=== PATIENT | female | born 1960 | race Asian ===

== ENCOUNTER 2019-02-08 19:20 | Emergency (ER) | payer BC ==
--- NOTE | 2019-02-08 19:36 | EDM.PDOC ---
ED HPI GENERAL MEDICAL PROBLEM - General Chief Complaint: Respiratory Problem Stated Complaint: [facility] Time Seen by Provider: 02/08/19 19:35 Source of Information: Reports: Patient History Limitations: Reports: No Limitations - History of Present Illness INITIAL COMMENTS - FREE TEXT/NARRATIVE: 58-year-old female of [place] ancestry presents to the ED per [place] [facility]. She has not been feeling well for the last week. She indicates gradually worsening dyspnea with productive cough of green sputum. Associated fever chills and rigors the last 2 days. Some diffuse central and right lower anterior chest pain i.e. pleuritic component with deep breathing and coughing. Decreased appetite although she did eat a little today. Patient suffers from chronic rheumatoid arthritis since age 15. She is no longer able to walk on her own. Patient had sepsis from pneumonia and urinary tract sepsis that destroyed a good deal of her kidney function within the last year. She is thus a hemodialysis patient twice weekly. She has missed dialysis for the last week because she's been to week and/or sick to travel to [place] for dialysis treatments. Denies any diarrhea. She still makes about a cup and a half of urine daily. Onset: Gradual Onset Date: 02/02/19 Duration: Day(s):, Constant, Getting Worse Location: Reports: Chest (Productive cough with some pleuritic right sided chest pains. Associated fever chills and/or rigors the last 2 days.), Generalized Quality: Reports: Other (Right anterior lateral chest.) Severity: Moderate Improves with: Reports: Rest Worsens with: Reports: Other (Worsens with coughing.) Context: Reports: Other (Patient is immunocompromised due to severe rheumatoid arthritis. 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 She has hemodialysis patient. She denies diabetes). Denies: Activity, Exercise, Lifting , Sick Contact, Trauma Associated Symptoms: Reports: Chest Pain, Cough, cough w sputum (Thick green sputum without hemoptysis), Diaphoresis, Fever/Chills, Loss of Appetite, Malaise , Nausea/Vomiting (Intermittent nausea without vomiting), Shortness of Breath, Weakness. Denies: Confusion, Headaches, Rash (Quite marked shortness of breath over the last 3 days), Seizure Treatments HYDROPONICS GROWER: Reports: Other (see below) (None.) Chest Pain Score (Numeric/FACES): 8 - Related Data Allergies Allergy/AdvReac Type Severity Reaction Status Date / Time codeine Allergy Vomiting Verified 02/08/19 19:33 Sulfa (Sulfonamide Allergy Hives Verified 02/08/19 19:33 Antibiotics) IV contrast dye. Allergy Blisters Uncoded 02/08/19 19:33 Home Meds: Home Meds Cyanocobalamin (Vitamin B12) [Vitamin B12] 1 tab PO DAILY 09/08/18 [History] Levothyroxine 125 mcg PO DAILY 09/08/18 [History] Multivitamin W/Iron, Minerals [Flintstones Complete] 1 tab PO DAILY 09/08/18 [ History] Potassium Chloride 2 tab PO DAILY 09/08/18 [History] traMADol [Ultram] 2 tab PO TID PRN 09/08/18 [History] Past Medical History Cardiovascular History: Reports: Other (See Below) Other Cardiovascular History: rheumatoid vasculitis Respiratory History: Reports: Pneumonia, Recurrent (She reports pneumonia at least 3 times in the past.) Genitourinary History: Reports: Dialysis (Dialysis patient twice weekly here in [place].), Other (See Below) (Apparently kidneys were damaged by septic shock and severe pyelonephritis. She spent a month in the hospital in [facility] [place] last year) [employer]ING TE[employer] History: Reports: Other (See Below) Other [employer]ING TECH History: cancer of uterus Musculoskeletal History: Reports: RA (Diagnosed with rheumatoid arthritis at age 15. She has severe deformities of both hands both feet and in knees. She has had no joint replacements. She can no longer walk. Early not on any remittive agents.), Other (See Below) Other Musculoskeletal History: lupus Neurological History: Reports: Other (See Below) Other Neuro History: surgery for fractured neck Oncologic (Cancer) History: Reports: Uterine (She reports total about a bowel hysterectomy in the past due to uterine cancer with retention of her ovaries.) - Past Surgical History Female Surgical History: Reports: Hysterectomy Social & Family History - Caffeine Use Caffeine Use: Reports: None - Living Situation & Occupation Living situation: Reports: Occupation: Disabled ED ROS GENERAL - Review of Systems Review Of Systems: See Below Constitutional: Reports: Fever, Chills, Malaise, Weakness, Fatigue, Decreased Appetite HEENT: Reports: Glasses Respiratory: Reports: Shortness of Breath, Pleuritic Chest Pain (Right anterior lateral lower chest.), Cough, Sputum. Denies: Wheezing, Hemoptysis (Productive green sputum) Cardiovascular: Reports: Blood Pressure Problem, Dyspnea on Exertion ( Chronically but much worse the last week), Lightheadedness. Denies: Claudication (Chronic hypertension), Edema Endocrine: Reports: Fatigue GI/Abdominal: Reports: Constipation (Occasional positive constipation), Nausea. Denies: Diarrhea, Vomiting : Reports: Other (Still makes about A half of urine daily. Prone to urinary tract infection.) Musculoskeletal: Reports: Other (A shunt has multiple joint form and these particularly involving her hands with severe destruction of the MCP joints and ulnar drift of the fingers due to rheumatoid arthritis. His wrists are badly affected. Elbows mildly. Rheumatoid arthritis is affected both knees both ankles and both feet with deformity of the MTP joints as well.) Skin: Reports: Other (She has a area of healed vasculitis left medial lower leg. She states took about a year to get this to heal.) Neurological: Reports: No Symptoms Psychiatric: Reports: No Symptoms Hematologic/Lymphatic: Reports: No Symptoms Immunologic: Reports: No Symptoms ED EXAM, GENERAL - Physical Exam Exam: See Below Exam Limited By: Other (Patient is warm to palpation. Warmer than what temperature suggest 37.1. Sats are 95-96% on room air. Productive sounding cough. Respiratory is 16.) General Appearance: Alert, WD/WN, Mild Distress Eye Exam: Bilateral Eye: Normal Inspection (No scleral icterus.) Ears: Other (Mild erythema of the right tympanic membrane. Left is normal) Throat/Mouth: Other Head: Atraumatic, Normocephalic Neck: Normal Inspection, Supple, Non-Tender, Full Range of Motion. No: Carotid Bruit, Lymphadenopathy (L), Lymphadenopathy (R) Respiratory/Chest: No Respiratory Distress, Decreased Breath Sounds (Decreased air entry to both lower lung deleon worse on the right side as compared to the left.), Rales, Rhonchi (Rhonchi appreciated both lung deleon worse on the right posterior lung than on the left. These clear somewhat with coughing.), Wheezing (Questionable fine crackles both bases worse on the right as compared to the left.), Other (Broviac catheter right upper anterior chest which is being used for dialysis treatment. He has an AV fistula left lower humerus which apparently is not functioning well enough to allow hemodialysis. It still has a palpable thrill.). No: Stridor ( Very occasional expiratory wheeze.), Pleural Rub, Accessory Muscle Use, Retractions, Splinting Cardiovascular: Regular Rate, Rhythm, No Edema, No Gallop, No Murmur, No Rub. No: Normal Peripheral Pulses Peripheral Pulses: 2+: Posterior Tibial (L), Posterior Tibial (R), Dorsalis Pedis (L), Dorsalis Pedis (R) GI/Abdominal: Normal Bowel Sounds, Soft, Non-Tender, No Organomegaly, No Abnormal Bruit, No Mass, Pelvis Stable, Other (Review surgical scar from total abdominal hysterectomy with retention of ovaries due to cancer of the uterus) Extremities: Other (There are deformities of her hands from rheumatoid arthritis destruction of the MCP joints with ulnar drift of the fingers wrists are both involved and near are nearly fused. Elbows are slightly involved. Knees are heavily involved as are her feet and toes or MTP joints.) Neurological: Alert, Oriented, CN II-XII Intact, Normal Cognition Psychiatric: Normal Affect, Normal Mood Skin Exam: Warm, Dry, Intact, Normal Color, No Rash EKG INTERPRETATION EKG Date: 02/08/19 Time: 19:35 Rhythm: NSR Rate (Beats/Min): 95 [place]: Normal P-Wave: Present QRS: Other (Early R-wave transition-consider septal hypertrophy.) ST-T: Normal QT: Prolonged (QTC is mildly prolonged) EKG Interpretation Comments: Borderline ECG Course - Vital Signs Last Recorded V/S: Last Vital Signs Temp 37.1 C 02/08/19 19:28 Pulse 94 02/08/19 19:28 Resp 16 02/08/19 19:28 BP 151/83 H 02/08/19 19:28 Pulse Ox 95 02/08/19 19:28 - Orders/Labs/Meds Orders: Active Orders 24 hr Category Date Time Status EKG Documentation Completion [RC] STAT Care 02/08/19 19:44 Active CULTURE BLOOD [BC] Stat Lab 02/08/19 19:45 Ordered CULTURE BLOOD [BC] Stat Lab 02/08/19 21:35 Received PRO B-TYPE NATRIUR PEPT,BNPPRO [CHEM] Stat Lab 02/08/19 19:45 Ordered SEDIMENTATION RATE AUTO [HEME] Stat Lab 02/08/19 21:35 Received URINALYSIS W/MICROSCOPIC [UA W/MICROSCOPIC] [URIN] Stat Lab 02/08/19 19:45 Ordered Sodium Chloride 0.9% [Normal Saline] 1,000 ml Med 02/08/19 20:00 Active IV ASDIRECTED cefTRIAXone [Rocephin] 2 gm Med 02/08/19 21:45 Active Sodium Chloride 0.9% [Normal Saline] 100 ml IV Q24H Blood Culture x2 Reflex Set [OM.PC] Stat Oth 02/08/19 19:45 Ordered Medication Orders Sodium Chloride (Normal Saline) 1,000 mls @ 50 mls/hr IV ASDIRECTED JEREMIE Last Admin: 02/08/19 20:25 Dose: 50 mls/hr Ceftriaxone Sodium 2 gm/ (Sodium Chloride) 100 mls @ 200 mls/hr IV Q24H JEREMIE Labs: Laboratory Tests 02/08/19 02/08/19 02/08/19 Range/Units 19:44 20:15 20:15 WBC 10.03 (3.98-10.04) K/mm3 RBC 2.92 L (3.98-5.22) M/mm3 Hgb 8.1 L (11.2-15.7) gm/L Hct 26.2 L (34.1-44.9) % MCV 89.7 (79.4-94.8) fl MCH 27.7 (25.6-32.2) pg MCHC 30.9 L (32.2-35.5) g/dl RDW Std Deviation 50.0 H (36.4-46.3) fL Plt Count 351 (182-369) K/mm3 MPV 9.0 L (9.4-12.3) fl Neutrophils % (Manual) 70 H (40-60) % Band Neutrophils % 2 (0-10) % Lymphocytes % (Manual) 19 L (20-40) % Atypical Lymphs % 0 % Monocytes % (Manual) 0 L (2-10) % Eosinophils % (Manual) 7 H (0.7-5.8) % Basophils % (Manual) 0 L (0.1-1.2) Myelocytes % 1 Promyelocytes % 1 Platelet Estimate Adequate Plt Morphology Comment Normal RBC Morph Comment Normal PT 10.7 (9.5-12.1) SECONDS INR 0.98 APTT 22 L (24-31) SECONDS Sodium 138 (136-145) mEq/L Potassium 6.1 H D (3.5-5.1) mEq/L Chloride 103 (98-107) mEq/L Carbon Dioxide 14 L (21-32) mEq/L Anion Gap 27.1 H (5-15) BUN 107 H D (7-18) mg/dL Creatinine 12.2 H (0.55-1.02) mg/dL Est Cr Clr Drug Dosing 4.34 mL/min Estimated GFR (MDRD) 3 (>60) mL/min BUN/Creatinine Ratio 8.8 L (14-18) Glucose 155 H (74-106) mg/dL Lactic Acid (0.4-2.0) mmol/L Calcium 7.1 L D (8.5-10.1) mg/dL Magnesium 2.9 H (1.8-2.4) mg/dl Total Bilirubin 0.3 (0.2-1.0) mg/dL AST 20 (15-37) U/L ALT 12 L (14-59) U/L Alkaline Phosphatase 75 (46-116) U/L Troponin I < 0.017 (0.00-0.056) ng/mL C-Reactive Protein 19.9 H* (<1.0) mg/dL Total Protein 6.6 (6.4-8.2) g/dl Albumin 1.8 L (3.4-5.0) g/dl Globulin 4.8 gm/dL Albumin/Globulin Ratio 0.4 L (1-2) Mycoplasma pneumon IgM Negative (NEGATIVE) 02/08/19 Range/Units 21:35 WBC (3.98-10.04) K/mm3 RBC (3.98-5.22) M/mm3 Hgb (11.2-15.7) gm/L Hct (34.1-44.9) % MCV (79.4-94.8) fl MCH (25.6-32.2) pg MCHC (32.2-35.5) g/dl RDW Std Deviation (36.4-46.3) fL Plt Count (182-369) K/mm3 MPV (9.4-12.3) fl Neutrophils % (Manual) (40-60) % Band Neutrophils % (0-10) % Lymphocytes % (Manual) (20-40) % Atypical Lymphs % % Monocytes % (Manual) (2-10) % Eosinophils % (Manual) (0.7-5.8) % Basophils % (Manual) (0.1-1.2) Myelocytes % Promyelocytes % Platelet Estimate Plt Morphology Comment RBC Morph Comment PT (9.5-12.1) SECONDS INR APTT (24-31) SECONDS Sodium (136-145) mEq/L Potassium (3.5-5.1) mEq/L Chloride (98-107) mEq/L Carbon Dioxide (21-32) mEq/L Anion Gap (5-15) BUN (7-18) mg/dL Creatinine (0.55-1.02) mg/dL Est Cr Clr Drug Dosing mL/min Estimated GFR (MDRD) (>60) mL/min BUN/Creatinine Ratio (14-18) Glucose (74-106) mg/dL Lactic Acid 1.1 (0.4-2.0) mmol/L Calcium (8.5-10.1) mg/dL Magnesium (1.8-2.4) mg/dl Total Bilirubin (0.2-1.0) mg/dL AST (15-37) U/L ALT (14-59) U/L Alkaline Phosphatase (46-116) U/L Troponin I (0.00-0.056) ng/mL C-Reactive Protein (<1.0) mg/dL Total Protein (6.4-8.2) g/dl Albumin (3.4-5.0) g/dl Globulin gm/dL Albumin/Globulin Ratio (1-2) Mycoplasma pneumon IgM (NEGATIVE) Meds: Medications Generic Name Dose Route Start Last Admin Trade Name Freq PRN Reason Stop Dose Admin Sodium Chloride 1,000 mls @ 50 mls/hr 02/08/19 20:00 02/08/19 20:25 Normal Saline IV 50 mls/hr ASDIRECTED JEREMIE Administration Ceftriaxone Sodium 2 gm/ 100 mls @ 200 mls/hr 02/08/19 21:45 Sodium Chloride IV Q24H JEREMIE Discontinued Medications Generic Name Dose Route Start Last Admin Trade Name Freq PRN Reason Stop Dose Admin Acetaminophen 650 mg 02/08/19 19:46 02/08/19 20:02 Tylenol PO 02/08/19 19:47 650 mg NOW ONE Administration Metoclopramide HCl 5 mg 02/08/19 19:46 02/08/19 20:18 Reglan IVPUSH 02/08/19 19:47 5 mg ONETIME ONE Administration Oseltamivir Phosphate 75 mg 02/08/19 21:02 02/08/19 21:25 Tamiflu PO 02/08/19 21:03 75 mg ONETIME ONE Administration - Radiology Interpretation Free Text/Narrative:: 50-year-old female presents to the ED with fever chills riders and not feeling well for the better part of a week. She has a very productive greenish sputum cough. She has had recurrent pneumonia in the past. She is immunocompromised due to having rheumatoid arthritis with previous rheumatoid arthritis induced vasculitis. Is currently not on any remittive therapy. She is a hemodialysis patient due to kidney damage from septic shock and severe pyelonephritis. She is supposed to be on dialysis twice weekly but missed the last week of dialysis due to not feeling well. O2 sats are 95% on room air. He has pleuritic right anterior lateral chest pain. Plan: Tylenol 650 mg by mouth. Septic workup will be carried out. - Re-Assessments/Exams Free Text/Narrative Re-Assessment/Exam: 02/08/19 20;25: Chest x-ray reveals increased density within the right lung base questionably improved from prior exam. Difficult to exclude a persistent nodule or mass versus recurrent pneumonia. Moderate cardiomegaly appreciated with mild diffuse vascular congestion pattern. Land CT of the chest will be done without IV contrast due to her compromised renal function. 02/08/19 21:01 labs are still pending. Influenza screen is positive for the type B virus. Will give first dose of Tamiflu 75 mg by mouth now. 02/08/19 21:13 Part of the labs are back. Total white count is 10.03 with 70% neutrophils and 2% band cells reported. Hemoglobin is low at 8.1 with hematocrit of 26.2. MCV is 89.7. Reticulocyte count is 351,000. PT is 10.7 with an INR of 0.98. PTT is 22. Chemistry is pending. 02/08/19 21:17 CT of the chest has been carried out without IV contrast due to him. Renal function. Rings reveal several mediastinal lymph nodes. Largest lymph node measures 1.5 cm which is slightly prominent in size. Pericardial effusion is seen which appears slightly increased in Hounsfield unit measurements for simple pleural effusion and difficult to exclude exudative pericardial effusion. Loculated areas of pleural fluid and pleural thickening are seen within both lung bases worse on the right side. Right-sided dialysis catheter is present. Minimal atelectasis is noted within both lung bases. Small nodule is noted within the right lung base measuring 6 mm. 02/08/19 21:19 chemistry is back.Chemistry reveals a sodium of 138 with potassium of 6.1. Chloride was 103 with a bicarbonate of 14. Anion gap is 27.1. BUN is 107 with a creatinine of 12.2. Estimated GFR is 3. Glucose is 155. Calcium is 7.1. Magnesium is 2.9. Liver function is normal. Troponin I is less than 0.017. C-reactive protein is pending. Total protein is 6.6 with an albumin fraction very low at 1.8. Mycoplasma pneumonia titer is pending. 02/08/19 21:40 CRP is elevated at 19.9. I will therefore give her 2 g of Rocephin intravenously at this time. I will make arrangements for her to be transferred to [place] as she is going to require bedside dialysis to prevent severe hyperkalemia from developing. She never did provide a urine sample and would not allow catheterization. Echo plasma titer is negative. I've been told that due to problems in the lab BMP, lactic acid will not be available. 02/08/19 22:05: I have spoken to the 1: [facility] in [place] to --control panel operator crude unit hospitalist who is accepted care of this patient. [facility]. She will require bedside dialysis management. CT reports will be sent with the chart and CTs have been sent to [facility] per PACS. Departure - Departure Time of Disposition: 22:25 Disposition: DC/Tfer to Acute Hospital 02 Condition: Serious Clinical Impression: Febrile respiratory illness, Influenza, bronchopneumonia, Hemodialysis patient , Hyperkalemia, diminished renal excretion, Pericardial effusion, Pleural effusion, bilateral, Vasculitis Renal failure Qualifiers: Renal failure chronicity: chronic Chronic kidney disease stage: on chronic dialysis Qualified Code(s): N18.6 - End stage renal disease; Z99.2 - Dependence on renal dialysis Rheumatoid arthritis Qualifiers: Rheumatoid arthritis location: multiple sites Rheumatoid factor presence: with rheumatoid factor Qualified Code(s): M05.79 - Rheumatoid arthritis with rheumatoid factor of multiple sites without organ or systems involvement - Discharge Information *PRESCRIPTION DRUG MONITORING PROGRAM REVIEWED*: No *COPY OF PRESCRIPTION DRUG MONITORING REPORT IN PATIENT [place]: No Referrals: PCP,None [Primary Care Provider] - Forms: ED Department Discharge Additional Instructions: Patient will be transferred to [facility] in [place] due to need for bedside hemodialysis. Patient has an upper respiratory tract infection with reported productive green sputum suggestive of bronchopneumonia. She proved to be influenza type B positive. She has mild hyperkalemia at 6.1. CT reveals bilateral significant pleural effusions particularly on the right side which appears to be chronic. She also has a mild to moderate pericardial effusion. Patient has chronic rheumatoid arthritis and is no longer able to walk. Currently not on any remittive therapy. Therefore she is immunocompromised due to hemodialysis state and rheumatoid arthritis. - My Orders Last 24 Hours: My Active Orders 02/08/19 19:44 EKG Documentation Completion [RC] STAT 02/08/19 19:45 CULTURE BLOOD [BC] Stat PRO B-TYPE NATRIUR PEPT,BNPPRO [CHEM] Stat URINALYSIS W/MICROSCOPIC [UA W/MICROSCOPIC] [URIN] Stat Blood Culture x2 Reflex Set [OM.PC] Stat 02/08/19 20:00 Sodium Chloride 0.9% [Normal Saline] 1,000 ml IV ASDIRECTED 02/08/19 21:35 CULTURE BLOOD [BC] Stat SEDIMENTATION RATE AUTO [HEME] Stat 02/08/19 21:45 cefTRIAXone [Rocephin] 2 gm Sodium Chloride 0.9% [Normal Saline] 100 ml IV Q24H - Assessment/Plan Last 24 Hours: My Active Orders 02/08/19 19:44 EKG Documentation Completion [RC] STAT 02/08/19 19:45 CULTURE BLOOD [BC] Stat PRO B-TYPE NATRIUR PEPT,BNPPRO [CHEM] Stat URINALYSIS W/MICROSCOPIC [UA W/MICROSCOPIC] [URIN] Stat Blood Culture x2 Reflex Set [OM.PC] Stat 02/08/19 20:00 Sodium Chloride 0.9% [Normal Saline] 1,000 ml IV ASDIRECTED 02/08/19 21:35 CULTURE BLOOD [BC] Stat SEDIMENTATION RATE AUTO [HEME] Stat 02/08/19 21:45 cefTRIAXone [Rocephin] 2 gm Sodium Chloride 0.9% [Normal Saline] 100 ml IV Q24H
[2019-02-08] MEDS ORDERED: Acetaminophen 325 MG Tab PO ONE (19:46)
[2019-02-08] MEDS ORDERED: Metoclopramide 10 MG/2 ML SDV IVPUSH ONE (19:46)
[2019-02-08] MEDS ORDERED: Sodium Chloride 0.9% 1,000 ML IV SCH (20:00)
--- NOTE | 2019-02-08 20:06 | CR ---
Chest: Portable view of the chest was obtained. Comparison: Prior chest x-ray of 09/08/18. Heart is enlarged. Right-sided central line is seen. Slight parenchymal density remains within the right lung base. This is seen on prior study and may be slightly decreased in size but CT is recommended to further evaluate. Lungs otherwise are clear. Impression: 1. Increased density within right lung base questionably improved from prior exam. Difficult to exclude a persistent nodule or mass versus recurrent pneumonia. Recommend contrast enhanced chest CT to further evaluate. 2. Cardiomegaly and other incidental findings. Diagnostic code #9
[2019-02-08] MEDS ORDERED: Oseltamivir 75 MG Cap PO ONE (21:02)
--- NOTE | 2019-02-08 21:09 | CT ---
CT chest Technique: Multiple axial sections were obtained from above the lung apices inferiorly through the lung bases. Intravenous contrast not utilized. Comparison: Prior chest x-ray performed earlier on the same day (7:49 PM). Findings: Several mediastinal lymph nodes are seen. Largest lymph node measures 1.5 cm which is slightly prominent in size. Pericardial effusion is seen which appears slightly increased in Hounsfield unit measurements for simple pleural effusion and difficult to exclude exudative pericardial effusion. Loculated areas of pleural fluid and pleural thickening are seen within both lung bases, worse on the right side. Right sided dialysis catheter is seen. Minimal atelectasis noted within both lung bases. Small nodule is noted within the right lung base measuring 6 mm. Lungs otherwise are clear. Bone window settings were reviewed which appear within normal limits for the patient's age. Impression: 1. Pericardial effusion having slight increased Hounsfield unit measurements borderline for simple pericardial effusion or exudative pericardial effusion. 2. Slightly prominent lymph node within the mediastinum which may be reactive. 3. 6 mm nodule within the right lung base. 4. Loculated areas of pleural fluid and pleural thickening within both lung bases, worse on the right side. 5. No acute parenchymal change is appreciated. Note: Recommend follow-up CT study in 3-4 months to confirm stability of above findings. Diagnostic code #9
[2019-02-08] MEDS ORDERED: cefTRIAXone 2 GM in Sodium Chloride 0.9% 100 ML IV SCH (21:45)
[2019-02-08] MEDS ORDERED: HYDROmorphone 1 MG/ML Syringe IVPUSH ONE (22:28)
== END 2019-02-08 22:43 ==
LOC: JD.ED 19:20
DX: J18.0 Bronchopneumonia, unspecified organism (principal); J11.1 Influenza due to unidentified influenza virus with other respiratory manifestations; N18.6 End stage renal disease; E87.5 Hyperkalemia; I31.3 Pericardial effusion (noninflammatory); J90 Pleural effusion, not elsewhere classified; I77.6 Arteritis, unspecified; Z99.2 Dependence on renal dialysis; M05.79 Rheumatoid arthritis with rheumatoid factor of multiple sites without organ or systems involvement; Z88.8 Allergy status to other drugs, medicaments and biological substances; Z88.2 Allergy status to sulfonamides; Z79.899 Other long term (current) drug therapy
CPT/HCPCS: 36415; 71045; 71250; 80053; 83605; 83735; 83880; 84484; 85007; 85027; 85610; 85652; 85730; 86140; 86738; 87040; 87804; 93005; 96361; 96365; 96375; 99285; A9270; J0696; J1170; J2765; J7030; J7040; 93010

== ENCOUNTER 2019-06-03 14:59 | Emergency (ER) | payer BC ==
[2019-06-03] MEDS ORDERED: Sodium Chloride 0.9% 10 ML Syringe FLUSH PRN (16:06)
[2019-06-03] MEDS ORDERED: HYDROmorphone 1 MG/ML Syringe IM ONE ×2 (17:01→18:13)
--- NOTE | 2019-06-03 17:05 | CT ---
Head CT Technique: Multiple axial sections through the brain were obtained. Intravenous contrast was not utilized. Comparison: No prior intracranial imaging. Findings: Sulci over the convexities are mildly prominent which are more prominent within both frontal regions compatible with asymmetric atrophy. No abnormal parenchymal densities are seen. No evidence of intracranial hemorrhage. No midline shift or mass effect is seen. Left temporal fossa arachnoid cyst is noted. Artifact is noted obscuring details within the posterior fossa from hardware within the posterior calvarium extending inferior presumably to the cervical spine. Soft tissue density is noted within the right mastoid sinus. Other visualized sinuses are clear. No acute calvarial abnormality is seen. Impression: 1. Asymmetric atrophy within both frontal regions. 2. Previous surgery with orthopedic hardware causing artifact within the posterior fossa. 3. Soft tissue density within the right mastoid sinus most likely chronic if patient has no symptoms of mastoiditis. 4.. No acute intracranial abnormality is identified. Other findings believed to be incidental as noted above. Diagnostic code #2
[2019-06-03] MEDS ORDERED: Acetaminophen/HYDROcodone 325-5 MG Tab PO ONE (18:55)
--- NOTE | 2019-06-03 19:26 | EDM.PDOC ---
ED HPI GENERAL MEDICAL PROBLEM - General Chief Complaint: Chest Pain Stated Complaint: SENT FROM [facility] HEADACHE SWEATING CONFUSION Time Seen by Provider: 06/03/19 15:52 Source of Information: Reports: Patient, Provider History Limitations: Reports: No Limitations - History of Present Illness INITIAL COMMENTS - FREE TEXT/NARRATIVE: The patient presents from [facility] for a headache and chest pain. She also has was diaphoretic. She denies having a fever or cough. She has no abdominal pain, nausea or vomiting. She does not normally get headaches like this. She has rheumatoid arthritis and she is wheelchair bound now. She does have a sore on her right heal that she does not want me to see. She just got off amoxicillin for that. She has a decub ulcer. Onset: Gradual Duration: Hour(s): Location: Reports: Head, Chest Quality: Reports: Sharp Severity: Moderate Improves with: Reports: None Worsens with: Reports: None Associated Symptoms: Reports: Chest Pain, Fever/Chills, Headaches. Denies: Cough, Loss of Appetite, Nausea/Vomiting, Shortness of Breath Middle Chest Pain Score (Numeric/FACES): 8 - Related Data Allergies Allergy/AdvReac Type Severity Reaction Status Date / Time codeine Allergy Vomiting Verified 06/03/19 15:43 Sulfa (Sulfonamide Allergy Hives Verified 06/03/19 15:43 Antibiotics) IV contrast dye. Allergy Blisters Uncoded 02/08/19 19:33 Home Meds: Home Meds Cyanocobalamin (Vitamin B12) [Vitamin B12] 1 tab PO DAILY 09/08/18 [History] Levothyroxine 125 mcg PO DAILY 09/08/18 [History] Multivitamin W/Iron, Minerals [Flintstones Complete] 1 tab PO DAILY 09/08/18 [ History] Potassium Chloride 2 tab PO DAILY 09/08/18 [History] traMADol [Ultram] 2 tab PO TID PRN 09/08/18 [History] Cephalexin [Keflex] 500 mg PO QID #40 capsule 06/03/19 [Rx] Hydrocodone/Acetaminophen [Hydrocodon-Acetaminophen 5-325] 1 - 2 each PO Q6HR PRN #20 tablet 06/03/19 [Rx] Past Medical History Cardiovascular History: Reports: Other (See Below) Other Cardiovascular History: rheumatoid vasculitis Respiratory History: Reports: Pneumonia, Recurrent Genitourinary History: Reports: Dialysis, Other (See Below) Other Genitourinary History: shunt in left arm 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: Reports: Other (See Below) Other 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: cancer of uterus Musculoskeletal History: Reports: RA, Other (See Below) Other Musculoskeletal History: lupus Neurological History: Reports: Other (See Below) Other Neuro History: surgery for fractured neck Oncologic (Cancer) History: Reports: Uterine - Past Surgical History Female Surgical History: Reports: Hysterectomy Social & Family History - Tobacco Use Smoking Status *Q: Current Status Unknown - Caffeine Use Caffeine Use: Reports: None - Recreational Drug Use Recreational Drug Use: No - Living Situation & Occupation Living situation: Reports: Occupation: Disabled ED ROS GENERAL - Review of Systems Review Of Systems: See Below Constitutional: Reports: Chills. Denies: Fever HEENT: Reports: No Symptoms Respiratory: Reports: No Symptoms Cardiovascular: Reports: Chest Pain Endocrine: Reports: No Symptoms GI/Abdominal: Reports: No Symptoms : Reports: No Symptoms Musculoskeletal: Reports: Other (Ulcer on her right heal) ED EXAM, GENERAL - Physical Exam Exam: See Below Exam Limited By: No Limitations General Appearance: Alert, No Apparent Distress Ears: Normal External Exam Nose: Normal Inspection Head: Atraumatic, Normocephalic Neck: Normal Inspection Respiratory/Chest: No Respiratory Distress, Lungs Clear, Normal Breath Sounds Cardiovascular: Regular Rate, Rhythm, No Edema, No Murmur GI/Abdominal: Soft, Non-Tender, No Organomegaly, No Mass Rectal (Female) Exam: Other (Decub ulcer with some erythema) Extremities: Other (The patient has a sock on both feet and she will not let me see them) Course - Vital Signs Last Recorded V/S: Last Vital Signs Temp 98.4 F 06/03/19 15:41 Pulse 104 H 06/03/19 15:41 Resp 17 06/03/19 15:41 BP 146/76 H 06/03/19 15:41 Pulse Ox 96 06/03/19 15:41 - Orders/Labs/Meds Orders: Active Orders 24 hr Category Date Time Status Cardiac Monitoring [RC] . DIRECTED Care 06/03/19 16:06 Active EKG Documentation Completion [RC] ASDIRECTED Care 06/03/19 15:43 Active Peripheral IV Care [RC] . DIRECTED Care 06/03/19 16:06 Active Chest 1V Frontal [CR] Stat Exams 06/03/19 16:06 Taken Sodium Chloride 0.9% [Saline Flush] Med 06/03/19 16:06 Active 10 ml FLUSH ASDIRECTED PRN Peripheral IV Insertion Adult [OM.PC] Stat Oth 06/03/19 16:06 Ordered EKG 12 Lead [EK] Stat Ther 06/03/19 15:43 Ordered Medication Orders Sodium Chloride (Saline Flush) 10 ml FLUSH ASDIRECTED PRN PRN Reason: Keep Vein Open Labs: Laboratory Tests 06/03/19 06/03/19 Range/Units 16:47 16:47 WBC 15.15 H (3.98-10.04) K/mm3 RBC 3.33 L (3.98-5.22) M/mm3 Hgb 9.1 L (11.2-15.7) gm/L Hct 29.9 L (34.1-44.9) % MCV 89.8 (79.4-94.8) fl MCH 27.3 (25.6-32.2) pg MCHC 30.4 L (32.2-35.5) g/dl RDW Std Deviation 52.8 H (36.4-46.3) fL Plt Count 362 (182-369) K/mm3 MPV 9.0 L (9.4-12.3) fl Neut % (Auto) 76.5 H (34.0-71.1) % Lymph % (Auto) 11.5 L (19.3-51.7) % [place] % (Auto) 5.1 (4.7-12.5) % Eos % (Auto) 6.0 H (0.7-5.8) Baso % (Auto) 0.3 (0.1-1.2) % Neut # (Auto) 11.58 H (1.56-6.13) K/mm3 Lymph # (Auto) 1.74 (1.18-3.74) K/mm3 [place] # (Auto) 0.78 H (0.24-0.36) K/mm3 Eos # (Auto) 0.91 H (0.04-0.36) K/mm3 Baso # (Auto) 0.05 (0.01-0.08) K/mm3 Manual Slide Review Abnormal smear Sodium 141 (136-145) mEq/L Potassium 4.0 D (3.5-5.1) mEq/L Chloride 103 (98-107) mEq/L Carbon Dioxide 27 D (21-32) mEq/L Anion Gap 15.0 (5-15) BUN 25 H D (7-18) mg/dL Creatinine 4.9 H D (0.55-1.02) mg/dL Est Cr Clr Drug Dosing 10.35 mL/min Estimated GFR (MDRD) 9 (>60) mL/min BUN/Creatinine Ratio 5.1 L (14-18) Glucose 112 H (74-106) mg/dL Calcium 8.4 L (8.5-10.1) mg/dL Total Bilirubin 0.3 (0.2-1.0) mg/dL AST 14 L (15-37) U/L ALT 10 L (14-59) U/L Alkaline Phosphatase 90 (46-116) U/L Troponin I 0.024 (0.00-0.056) ng/mL Total Protein 6.7 (6.4-8.2) g/dl Albumin 2.3 L (3.4-5.0) g/dl Globulin 4.4 gm/dL Albumin/Globulin Ratio 0.5 L (1-2) Meds: Medications Generic Name Dose Route Start Last Admin Trade Name Freq PRN Reason Stop Dose Admin Sodium Chloride 10 ml 06/03/19 16:06 Saline Flush FLUSH ASDIRECTED PRN Keep Vein Open Discontinued Medications Generic Name Dose Route Start Last Admin Trade Name Freq PRN Reason Stop Dose Admin Hydrocodone Bitart/Acetaminophen 2 tab 06/03/19 18:55 06/03/19 19:09 [place] 325-5 Mg PO 06/03/19 18:56 2 tab ONETIME ONE Administration Hydromorphone HCl 1 mg 06/03/19 17:01 06/03/19 17:38 Dilaudid IM 06/03/19 17:02 1 mg ONETIME ONE Administration Hydromorphone HCl 1 mg 06/03/19 18:13 06/03/19 18:34 Dilaudid IM 06/03/19 18:14 1 mg ONETIME ONE Administration - Re-Assessments/Exams Free Text/Narrative Re-Assessment/Exam: 06/03/19 19:31 I ordered an IV but my nurse could not get one. I got an EKG that shows a NSR with no acute changes. I ordered a CT of her head and labs. The CT of her head shows asymmetry atrophy within both frontal regions. Previous surger with orthopedic hardware causing artifact within the posterior fossa. Soft tissue density within the right mastoid sinus most likely chronic if patient has no symptoms of mastoiditis. No acute intracranial abnormality is identified. Other findings believed to be incidental. 06/03/19 19:34 Her WBC was elevated at 15.5. Her Hgb was low at 9.1. Her GFR is low at 9. Her glucose is 112. I feel she has a decub infection and right heal. I will get her on some keflex and something for pain. Departure - Departure Time of Disposition: 19:40 Disposition: Home, Self-Care 01 Condition: Good Clinical Impression: Renal failure Qualifiers: Renal failure chronicity: chronic Chronic kidney disease stage: on chronic dialysis Qualified Code(s): N18.6 - End stage renal disease; Z99.2 - Dependence on renal dialysis Anemia Qualifiers: Anemia type: unspecified type Qualified Code(s): D64.9 - Anemia, unspecified Decubital ulcer Qualifiers: Pressure injury location: heel Pressure injury stage: stage 3 Laterality: unspecified laterality Qualified Code(s): L89.603 - Pressure ulcer of unspecified heel, stage 3 Prescriptions: Hydrocodone/Acetaminophen [Hydrocodon-Acetaminophen 5-325] 1 - 2 each PO Q6HR PRN #20 tablet PRN Reason: Pain Cephalexin [Keflex] 500 mg PO QID #40 capsule Referrals: PCP,None [Primary Care Provider] - Forms: ED Department Discharge Additional Instructions: Take the keflex 4 times per day for 10 days. Take hydrocodone as needed for pain. Follow up with your doctor within a week. Please return if you are worse. - My Orders Last 24 Hours: My Active Orders 06/03/19 15:43 EKG Documentation Completion [RC] ASDIRECTED EKG 12 Lead [EK] Stat 06/03/19 16:06 Cardiac Monitoring [RC] . DIRECTED Peripheral IV Care [RC] . DIRECTED Chest 1V Frontal [CR] Stat Sodium Chloride 0.9% [Saline Flush] 10 ml FLUSH ASDIRECTED PRN Peripheral IV Insertion Adult [OM.PC] Stat - Assessment/Plan Last 24 Hours: My Active Orders 06/03/19 15:43 EKG Documentation Completion [RC] ASDIRECTED EKG 12 Lead [EK] Stat 06/03/19 16:06 Cardiac Monitoring [RC] . DIRECTED Peripheral IV Care [RC] . DIRECTED Chest 1V Frontal [CR] Stat Sodium Chloride 0.9% [Saline Flush] 10 ml FLUSH ASDIRECTED PRN Peripheral IV Insertion Adult [OM.PC] Stat
--- NOTE | 2019-06-04 08:16 | CR ---
Chest: Portable view of the chest was obtained. Comparison: Prior chest x-ray of 02/08/19. Right-sided dialysis catheter is noted. Heart size is slightly prominent. Upper mediastinum is normal. Lungs show minimal density within the lateral right costophrenic angle which most likely represent scarring. Lungs otherwise are clear. Bony structures are grossly intact. Impression: 1. Findings as noted above. Nothing acute is suspected on portable chest x-ray. Diagnostic code #2
== END 2019-06-03 19:30 | disposition home or self-care (01) ==
LOC: JD.ED 14:59
DX: L89.613 Pressure ulcer of right heel, stage 3 (principal); N18.6 End stage renal disease; D63.1 Anemia in chronic kidney disease; Z99.2 Dependence on renal dialysis; Z85.42 Personal history of malignant neoplasm of other parts of uterus; Z88.2 Allergy status to sulfonamides; Z91.041 Radiographic dye allergy status; Z88.5 Allergy status to narcotic agent
CPT/HCPCS: 36415; 70450; 71045; 80053; 84484; 85025; 93005; 96372; 99285; A9270; J1170